=== PATIENT | female | born 1975 | race Two or more races ===

== ENCOUNTER 2016-07-08 12:58 | Emergency (ER) | payer OTHER ==
--- NOTE | ~2016-07-08 | CR72 ---
[facility] A Service of [facility] RADIOLOGY TEXT RESULTS PATIENT: CHINMAY LIU LOCATION: [facility] : [birth year] UNIT #: [id number] AGE: [address]: Favian Su MD SEX: F ORDER DR: [id number] [facility] [address] [place], [place] [address] [id number] MR#: [id number] Acc #: [id number] NAME: CHINMAY GARCIA : 1975 SEX: F STUDY DATE/TIME: 07/08/2016 12:03 UNIT: [facility] ROOM: STUDY DESCRIPTION: CR Chest Single View Portable Attending Physician: Favian Su M.D. Referring Physician: Bibi Murdock M.D. Ordering Physician: Favian Su M.D. Primary Care Physician: Bibi Murdock M.D. MEDICAL IMAGING REPORT This report is preliminary unless electronic signature is present EXAM Portable chest. DATE OF EXAM 07/08/2016 at 12:03. INDICATION Cough and congestion for 2 days. COMPARISON 01/11/2016 FINDINGS A single AP view of the chest shows both lungs to be clear. The heart is normal in size. The mediastinal contour is normal. No significant bone abnormalities are seen. IMPRESSION Normal AP portable chest. Dictated by... Gilbert Mcintyre Jr., M.D. THIS IS AN ELECTRONICALLY VERIFIED REPORT Gilbert Mcintyre Jr., M.D. at 07/11/2016 7:59 AM LA/edna TD: 07/08/2016 15:14 JOB #: [id number] MEDICAL IMAGING REPORT Page 1 of 1 COPY
--- NOTE | ~2016-07-08 | EKG ---
PATIENT: CHINMAY GARCIA UNIT #: [id number] Ventricular Rate: 88 BPM Atrial Rate: 88 BPM P-R Interval: 136 ms QRS Duration: 76 ms Q-T Interval: 372 ms QTC Calculation(Bezet): 450 ms P Edmond: 65 degrees Calculated R Edmond: 36 degrees Calculated T Edmond: 19 degrees Diagnosis Line: Sinus rhythm with Premature atrial complexes Diagnosis Line: Otherwise normal ECG Diagnosis Line: Diagnosis Line: Confirmed by ABDIAS HURLEY MD ([id number]) on 07/08/2016 Diagnosis Line: 6:39:51 PM INTERPRETING MD: XAVI IGLESIAS
[2016-07-08 12:14] LABS: POC - CKMB 1.1 ng/mL (0.0-7.9); POC - TROPONIN <0.05 ng/mL (<=0.05)
[2016-07-08 12:15] LABS: BASOPHIL% 0.4 % (0-2.5); DIFF IND NO; EOSINOPHIL# 0.1 X10e3 (0-0.7); EOSINOPHIL% 0.8 % (0.0-7.0); HEMATOCRIT 39.4 % (35.0-45.0); HEMOGLOBIN 12.9 gm/dL (12.0-16.0); LYMPHOCYTE# 1.9 X10e3 (1.0-3.5); LYMPHOCYTE% 25.1 % (17.0-45.0); MEAN CELL VOLUME 92.4 FL (83-96); MEAN CORPUSCULAR HEMOGLOBIN 30.2 PG (28-34); MEAN CORPUSCULAR HGB CONC 32.7 g/dL (30-36); MEAN PLATELET VOLUME 7.8 FL (6.5-11.5); MONOCYTE# 0.5 X10e3 (0-1.0); MONOCYTE% 7.1 % (3.0-12.0); NEUTROPHIL% 66.6 % (40-75); PLATELET COUNT 294 X10e3 (140-420); RED BLOOD COUNT 4.26 X10e (3.90-5.30); RED CELL DISTRIBUTION WIDTH 12.7 % (11.0-15.5); WHITE BLOOD COUNT 7.4 X10e3 (4.0-10.5)
[2016-07-08 12:45] LABS: ALBUMIN SERUM 4.1 g/dL (3.5-5.0); ALKALINE PHOSPHATASE 44 U/L (32-92); ALT (SGPT) 13 U/L (10-40); AST (SGOT) 14 U/L (10-42); BILIRUBIN, DIRECT 0.1 mg/dL (0.0-0.2); BILIRUBIN,INDIRECT 0.6 mg/dL (0.0-0.9); BILIRUBIN,TOTAL 0.7 mg/dL (0.2-2.0); BLOOD UREA NITROGEN 7 mg/dL (9-23); BUN/CREATININE RATIO 8.75; CALCIUM SERUM 9.2 mg/dL (8.4-10.2); CARBON DIOXIDE 21 mmol/L (22-31); CHLORIDE 108 mmol/L (100-111); CREATININE SERUM 0.8 mg/dL (0.6-1.4); GLOM FILT RATE Estimated 92.3 mL/min (>60); GLUCOSE FASTING 81 mg/dL (70-110); POTASSIUM 3.2 mmol/L (3.5-5.1); PROTEIN TOTAL SERUM 7.3 g/dL (6.0-8.3); SODIUM 138 mmol/L (135-145)
[2016-07-08 12:50] LABS: ALCOHOL BLOOD <5 mg/dL ([, 0])
[~2016-07-08 12:58] MED LIST: ALBUTEROL17 GM INH; AMOXICILLIN PO; AMOXICILLIN500 M1 PO; AURALGAN EAR DR14 ML OT; CIPRO PO; CLEOCIN150 MG PO; FLOXIN10 ML OT; KEFLEX PO; PHENERGAN W/CO120 ML PO; PROVERA PO; VICODIN 5/500 T1 TAB PO; ZITHROMAX PO
[2016-07-08 13:04] LABS: URINE SOURCE CLEAN CATCH
[2016-07-08 13:16] LABS: CULTURE INDICATED? NO; URINE APPEARANCE CLEAR; URINE BILIRUBIN NEG (NEG); URINE BLOOD TRACE (NEG); URINE COLOR YELLOW; URINE GLUCOSE NEG (NEG); URINE KETONE 3+ (NEG); URINE LEUKOCYTE ESTERASE TRACE (NEG); URINE NITRATE NEG (NEG); URINE PROTEIN NEG (NEG); URINE SPECIFIC GRAVITY 1.012 (1.003-1.035); URINE UROBILINOGEN 0.2 MG/DL (NEG)
[2016-07-08 13:29] LABS: AMPHETAMINE NEG (NEG); BARBITURATES NEG (NEG); BENZODIAZEPINES POS (NEG); COCAINE NEG (NEG); MARIJUANA NEG (NEG); OPIATES NEG (NEG); TRICYCLIC ANTIDEPRESSANTS NEG (NEG); U METHADONE NEG (NEG)
[2016-07-08 14:46] LABS: POC - CKMB <1.0 ng/mL (0.0-7.9); POC - TROPONIN <0.05 ng/mL (<=0.05)
== END 2016-07-08 17:49 | disposition home or self-care (01) ==
LOC: CED 12:58
PROVIDERS: Emergency Medicine
DX: R55 Syncope and collapse (principal); F32.9 Major depressive disorder, single episode, unspecified; F17.200 Nicotine dependence, unspecified, uncomplicated
CPT/HCPCS: 36415; 71010; 80048; 80076; 80307; 81003; 82553; 84484; 84703; 85025; 93005; 96361; 96374; 99285; G0480; J2405

== ENCOUNTER 2016-07-10 22:00 | Inpatient (IN) | payer OTHER ==
--- NOTE | ~2016-07-10 | PN ---
Unit #: [id number] #: [id number] Patient: CHINMAY LIU [id number] [facility] [address] [place] [address] [id number] MR#: [id number] NAME: CHINMAY LIU ROOM: P211 Age: 41 Sex: F Admission Date: 07/10/2016 : 1975 Attending Physician: Eder Cabrera M.D. Admitting Physician: Eder Cabrera M.D. Primary Care Physician: Seven Tovar PROGRESS NOTES DATE OF SERVICE 07/12/2016 DISCUSSION Ms. Bañuelos is a 41-year-old female seen on 07/12/2016. The patient interviewed, chart reviewed. Obtained information from nursing staff. The patient's mood continues to be labile, guarded, paranoid, compliant with medication. Currently on Desyrel, Zyprexa, Cogentin, and haloperidol. No side effects from medication. The patient was somewhat sleepy, isolative, guarded. The patient needed seclusion and holding twice today due to aggression. The patient continues to be guarded, disorganized behavior, paranoid. Pacing in hallway. Picking up on things. Increasingly agitated. Refused medication initially. The patient was given IM Haldol 1 mg. Before that Haldol, Cogentin IM. Complete Review of Systems: Unremarkable. MENTAL STATUS EXAMINATION General Appearance: The patient dressed in hospital attire. Attention span, concentration: Poor. Orientation in self. Mood and affect labile. Speech: Rapid. Thought process: Circumstantial, guarded, paranoid. Disorganized behavior. Disorganized thought process. Recent and remote memory poor. Insight and judgment poor. DIAGNOSES 1. Psychosis not otherwise specified. 2. Rule out schizophrenia, chronic, paranoid type. ASSESSMENT/PLAN Advised to continue with current medication and therapeutic protocol. If needed, consider further adjustment of medication. Dictated by... Eder Cabrera M.D. MAHI/emilie TD: 07/13/2016 10:34 JOB #: [id number] Unit #: [id number] #: [id number] Patient: CHINMAY LIU PROGRESS NOTES Page 1 of 1 X Eder Cabrera MD X PROGRESS NOTE
--- NOTE | ~2016-07-10 | TN ---
Unit #: [id number] #: [id number] Patient: CHINMAY EPPS [id number] [place] [address] [id number] I MR#: [id number] NAME: CHINMAY EPPS ROOM: P211 Age: 41 Sex: F Admission Date: 07/10/2016 : 1975 Discharge Date: 07/21/2016 Attending Physician: Eder Cabrera M.D. Primary Care Physician: Bibi Murdock M.D. LOC TRANSFER NOTE DATE OF SERVICE: 07/25/2016 The patient transferred from inpatient to partial program on 07/25/2016. ORIGINAL REASON FOR ADMISSION TO THE HOSPITAL Depression, psychosis. DISCHARGE MEDICATIONS Zyprexa 20 mg daily for mood stabilization and psychosis, Prozac 20 mg daily for depression, Inderal 20 mg b.i.d. for hand tremors, Ativan 0.5 mg at bedtime for anxiety, Wellbutrin 150 mg in the morning for mood symptom. RESPONSE TO TREATMENT Fair. REASON FOR TRANSFER TO ANOTHER LEVEL OF CARE The patient transferred from inpatient to partial program, so that the patient's behavior can be monitored in home environment. CURRENT SYMPTOMATOLOGY AND CLINICAL JUSTIFICATION FOR TRANSFER Please see above. MENTAL STATUS EXAMINATION General appearance, the patient dressed casually. Attention span and concentration, fair. Oriented in place and person. Mood and affect, labile. Speech, monotone. Thought process, concrete. The patient denied any thoughts of harming self or others. Recent and remote memory, poor. Insight and judgment, poor. DIAGNOSES Psychiatric: Bipolar mood disorder, recurrent, depressed with psychotic feature F31.9. Secondary diagnosis: Deferred. Medical diagnosis: None. Stressors: Psychosocial stressor. RECOMMENDATION AND EXPECTATION Advised to continue with outpatient program. Continue with current medication. The patient to attend all the programing in adult partial program. If needed, consider further adjustment of medication. Unit #: [id number] #: [id number] Patient: CHINMAY EPPS TREATMENT GOAL To attain euthymic mood, gain insight into her problem, and learn coping skills. DISCHARGE PLAN Plan to stabilize the patient and consider followup in outpatient program. ESTIMATED LENGTH OF STAY 2 weeks. Dictated by... Eder Cabrera M.D. [facility]/deisi TD: 08/26/2016 23:15 JOB #: [id number] LOC TRANSFER NOTE Page 1 of 1 X Eder Cabrera MD X LOC TRANSFER NOTE
--- NOTE | ~2016-07-10 | PN ---
Unit #: [id number] #: [id number] Patient: CHINMAY LIU [id number] [facility] [address] [place] [address] [id number] MR#: [id number] NAME: CHINMAY LIU ROOM: P211 Age: 41 Sex: F Admission Date: 07/10/2016 : 1975 Attending Physician: Eder Cabrera M.D. Admitting Physician: Eder Cabrera M.D. Primary Care Physician: Seven Tovar PROGRESS NOTES DATE OF SERVICE: 07/18/2016 DISCUSSION Ms. Bañuelos is a 41-year-old female, seen on 07/18/2016. The patient interviewed, chart reviewed, and obtained information from nursing staff. The patient continues to be guarded, withdrawn, isolative, and flat affect. According to the family, the patient is calling daughter, but she does not make much sense. The patient is compliant with medication. Daughter feels that she would not be safe to return home at this point. The patient was able to answer questions, but still disorganized thought process. Compliant with medication. REVIEW OF SYSTEMS Complete review of systems unremarkable. MENTAL STATUS EXAMINATION General appearance, the patient dressed casually. Attention span and concentration, fair. Oriented in place and person. Mood and affect, labile. Thought process; circumstantial, guarded, paranoid, disorganized thought process, attending to internal stimuli. Recent and remote memory, poor. Insight and judgment, poor. DIAGNOSES Psychosis, not otherwise specified; rule out bipolar mood disorder; and schizophrenia, chronic paranoid type. ASSESSMENT AND PLAN Advised to continue with current medication and therapeutic protocol. If needed, consider further adjustment of medication. Dictated by... Seven Christie/bharathl TD: 07/18/2016 19:03 JOB #: [id number] Unit #: [id number] #: [id number] Patient: CHINMAY LIU PROGRESS NOTES Page 1 of 1 X Eder Cabrera MD X PROGRESS NOTE
--- NOTE | ~2016-07-10 | PA ---
Unit #: [id number] #: [id number] Patient: EDDA LIU [id number] [facility] [address] [place] [address] [id number] MR#: [id number] NAME: EDDA LIU ROOM: P211 Age: 41 Sex: F Admission Date: 07/10/2016 : 1975 Date of Assessment: 07/11/2016 Attending Physician: Eder Cabrera M.D. Admitting Physician: Eder Cabrera M.D. Primary Care Physician: Bibi Murdock M.D. PSYCHIATRIC ASSESSMENT INFORMANTS The patient reliability, fair informant and chart reliability, good. CHIEF COMPLAINT Depression and not sleeping. HISTORY OF PRESENT ILLNESS Ms. Edda Perez is a 41-year-old female, presented with the above-mentioned complaint. The patient was interviewed with the help of an senior systems engineer. The patient was able to speak some Azeri. The patient reports she lives with her children and . History of inpatient treatment for psychosis and depression in [place] in 2017 twice. The patient presented with increase in depression, delusion, and not sleeping. The patient recently went to [place] for 3 weeks and returned on Sunday. While in [place], the patient was hospitalized for 5 days with mental health symptom. The patient was taking her 6-year-old son into deep portion of water in the dark. The patient denied any suicidal or homicidal ideation. The patient has bizarre thought process. Decreased sleep, has not slept in the last 1 week. The patient has been pacing and not functioning, poor concentration, and racing thoughts. The patient unable to complete tasks, unable to cook and clean, disorganized behavior and thought process. The patient is telling her family that she is queen Annalee and that the medication that they are trying to give her is poison. The patient is not eating and lost 12 pounds in the last 2 weeks. Denied any auditory or visual hallucination, but guarded and paranoid. The patient stated that she smoked some cigars and drank some beer while in [place]. The patient needing inpatient admission at this time for psychiatric stabilization. PAST PSYCHIATRIC HISTORY Remarkable for history of previous treatment in [place] as mentioned above. FAMILY HISTORY AND SOCIAL HISTORY The patient has a good support system. No history of any abuse. MEDICAL HISTORY Remarkable for UTI and asthma. MEDICATION HISTORY None. ALLERGIES No known drug allergies. Unit #: [id number] #: [id number] Patient: EDDA LIU SUBSTANCE ABUSE HISTORY None. REVIEW OF SYSTEMS HEENT: Eyes, clear. Ears, nose, mouth, and throat; clear. CARDIOVASCULAR: Unremarkable. RESPIRATORY: Unremarkable. GI: Unremarkable. : Unremarkable. SKIN: Unremarkable. LYMPH NODE: Unremarkable. NEUROLOGIC: Unremarkable. ENDOCRINE: Unremarkable. HEMATOLOGIC: Unremarkable. ALLERGIC/IMMUNOLOGIC: Unremarkable. MUSCULOSKELETAL: Muscle strength and tone, no atrophy or abnormal movement. Gait normal. MENTAL STATUS EXAMINATION CONSTITUTIONAL: Measurement of vital signs; temperature 98.3, heart rate 55, respiratory rate 17, oxygen saturation 100%, and blood pressure 127/82. Height 5 feet and weight 178 pounds. GENERAL APPEARANCE: The patient dressed casually. The patient did not show any facial deformity. MUSCULOSKELETAL: Please see above. PSYCHIATRIC EXAMINATION Description of speech; regular rate, normal volume, normal articulation, coherent, and spontaneous. Description of thought process, goal directed. Description of association, intact. Description of abnormal psychotic thinking; guarded, paranoid, delusional, mood lability, and paranoia. Description of the patient's judgment; concerning everyday activity, poor. Social situation, poor. Concerning psychiatric condition, poor. Complete mental status examination; oriented in time, place, and person. Recent and remote memory, poor. Attention span and concentration, poor. Fund of knowledge, poor. Vocabulary, fair. Insight and judgment, poor. The patient was interviewed with the help of senior systems engineer. ASSETS AND LIABILITIES Assets, the patient is articulate and able to take care of her ADL. Liability, history of depression and psychosis. ADMITTING DIAGNOSES Psychiatric: Major depressive disorder, recurrent, severe, F33.3, with psychotic features. Secondary diagnosis: Deferred. Medical diagnoses: Asthma and urinary tract infection. Stressors: Psychosocial stressors. PSYCHIATRIC PLAN AND TREATMENT GOAL AND DISCHARGE PLAN 1. Advised to admit the patient on the inpatient unit. Provide safe, supportive, and structured environment. 2. Ordered labs; CBC, CMP, UA, and UDS. 3. Precaution for psychosis and self-harm. Unit #: [id number] #: [id number] Patient: EDDA LIU 4. The patient to attend all the programing on the inpatient unit, group therapy, individual therapy, and medication management. Obtain collateral information from family. Advised to start the patient on Desyrel 50 mg at bedtime for sleep and Zyprexa 10 mg at bedtime for psychosis. Plan to add haloperidol. TREATMENT GOAL To attain euthymic mood, gain insight into her problem, and learn coping skills. DISCHARGE PLAN Plan to stabilize the patient and consider followup in outpatient program. ESTIMATED LENGTH OF STAY 30 days. Dictated by... Seven Christie/deisi TD: 07/11/2016 16:43 JOB #: [id number] PSYCHIATRIC ASSESSMENT Page 1 of 1 X Eder Cabrera MD X PSYCHIATRIC ASSESSMENT
--- NOTE | ~2016-07-10 | HP ---
Unit #: [id number] #: [id number] Patient: EDDA LIU [id number] [facility] [address] [place] [address] [id number] MR#: [id number] NAME: EDDA LIU ROOM: P211 Age: 41 Sex: F Admission Date: 07/10/2016 : 1975 Attending Physician: Eder Cabrera M.D. Admitting Physician: Eder Cabrera M.D. Primary Care Physician: Bibi Murdock M.D. HISTORY AND PHYSICAL HISTORY OF PRESENT ILLNESS Edda is a 41 year old [place] immigrant admitted to [address] [place] [address] with depression and verbalizing wanting to hurt herself. She speaks very good Syriac. She is employed at [employer]. PAST MEDICAL HISTORY Asthma. PAST SURGICAL HISTORY . ALLERGIES No known drug allergies. SOCIAL HISTORY Smokes on occasion. Drinks alcohol occasionally and denies illicit drug use. FAMILY HISTORY Medically noncontributory. REVIEW OF SYSTEMS CONSTITUTIONAL: No fever or chills. HEENT: Denies any sore throat, ear pain or runny nose. CARDIOVASCULAR: Denies chest pain, irregular heart rhythm or palpitations. CHEST: Denies shortness of breath or cough. No hemoptysis. GASTROINTESTINAL: Denies nausea, vomiting, diarrhea or chronic constipation. ENDOCRINE: Denies history of increased thirst or urination. No recent significant weight loss or gain. GENITOURINARY: Denies dysuria, frequency, or hematuria. SKIN: Denies any rashes. HEMATOLOGIC: Denies history of increased bleeding or bruising. MUSCULOSKELETAL: Denies any hot, swollen joints. No generalized muscle pain. NEUROLOGIC: Denies problems with vision or speech. No frequent, severe headaches. No numbness, tingling or weakness in any extremities. Denies loss of bladder or bowel control. CURRENT MEDICATIONS 1. Desyrel 50 mg q.h.s. 2. Zyprexa 10 mg q.h.s. 3. Cogentin 1 mg b.i.d. Unit #: [id number] #: [id number] Patient: EDDA LIU 4. Haldol 5 mg b.i.d. 5. Proventil inhaler p.r.n. 6. Milk of Magnesia p.r.n. 7. Maalox p.r.n. 8. Tylenol p.r.n. 9. Cipro 500 mg b.i.d. PHYSICAL EXAMINATION GENERAL: Alert, well-nourished, in no apparent distress. VITAL SIGNS: Blood pressure 126/82, heart rate 80, respirations 16, temperature 98.6. WEIGHT: 178. HEIGHT: 5 feet 0 inches. SKIN: Warm and dry without rash or lesion. HEENT: Normocephalic. TMs not viewed. Oral and nasal passages clear. Conjunctivae clear. PERRLA. EOMs intact. NECK: Supple without lymphadenopathy or thyromegaly. HEART: Regular rate and rhythm without murmur. LUNGS: Clear. ABDOMEN: Soft, nontender. : Not done. EXTREMITIES: No evidence of cyanosis, clubbing or edema. Moves all without focal deficit. NEUROLOGICAL: Grossly within normal limits. Cranial Nerves: II: Visual melendez are intact. III, IV AND : Extraocular movements are intact. Pupils are equal, round and reactive to light. V: Facial sensation is grossly normal. VII: Facial movements and expression are normal. VIII: Auditory acuity grossly intact. IX, X: Uvula is midline. Phonation is normal. XI: Patient shrugs shoulders and turns head normally. XII: Tongue protrudes in the midline. Sensory and Motor Function: Sensory and motor sensation is grossly normal. Motor: moves all extremities well. Coordination: Gait is normal. Deep Tendon Reflexes: Intact. IMPRESSION 1. Psychiatric admission. 2. Patient is being treated for UTI. Antibiotic was started prior to this admission. RECOMMENDATIONS PSYCHIATRIC: Per psychiatrist. MEDICAL: 1. See no contraindications to participate in facility's activities. 2. Complete Cipro. MEDICAL PROGNOSIS Good. MEDICAL CONDITION Stable. Dictated by... Sophia Wheat P.A.-C. for Sarbjit Huggins M.D. Unit #: [id number] #: [id number] Patient: EDDA LIU JEANNIE/remedios TD: 07/11/2016 16:29 JOB #: [id number] HISTORY AND PHYSICAL Page 1 of 1 X Sophia Wheat X HISTORY AND PHYSICAL
--- NOTE | ~2016-07-10 | PN ---
Unit #: [id number] #: [id number] Patient: CHINMAY LIU [id number] [facility] [address] [place] [address] [id number] MR#: [id number] NAME: CHINMAY LIU ROOM: P211 Age: 41 Sex: F Admission Date: 07/10/2016 : 1975 Attending Physician: Eder Cabrera M.D. Admitting Physician: Eder Cabrera M.D. Primary Care Physician: Seven Tovar PROGRESS NOTES DATE OF SERVICE: 07/13/2016 DISCUSSION Ms. Bañuelos is a 41-year-old female. The patient interviewed, chart reviewed, and obtained information from nursing staff. The patient sleeping good, tolerating medication fairly well, still somewhat guarded and paranoid, still having some bizarre behavior. Vital signs stable; temperature 98.1, heart rate 104, and blood pressure 124/79. The patient continues to be isolative, flat affect, sad and dysphoric mood. The patient's mood was irritable. Slow to follow direction. REVIEW OF SYSTEMS Complete review of systems unremarkable. MENTAL STATUS EXAMINATION General appearance, the patient dressed casually in hospital attire. Attention span and concentration, poor. Oriented in place and person. Mood and affect, sad, dysphoric, and flat. Speech is monotone. Thought process, concrete. The patient denied any thoughts of harming self or others, but still guarded, paranoid, and delusional. Recent and remote memory, poor. Insight and judgment, poor. DIAGNOSES Psychosis, not otherwise specified and bipolar mood disorder, not otherwise specified. ASSESSMENT AND PLAN Advised to continue with current medication and therapeutic protocol. If needed, consider further adjustment of medication. Monitor for side effects. Dictated by... Seven Christie/deisi TD: 07/13/2016 16:50 JOB #: [id number] Unit #: [id number] #: [id number] Patient: CHINMAY LIU PROGRESS NOTES Page 1 of 1 X Eder Cabrera MD PROGRESS NOTE
--- NOTE | ~2016-07-10 | PN ---
Unit #: [id number] #: [id number] Patient: CHINMAY LIU [id number] [facility] [address] [place] [address] [id number] MR#: [id number] NAME: CHINMAY LIU ROOM: P211 Age: 41 Sex: F Admission Date: 07/10/2016 : 1975 Attending Physician: Eder Cabrera M.D. Admitting Physician: Eder Cabrera M.D. Primary Care Physician: Seven Tovar NOTES DATE OF SERVICE 07/14/2016 DISCUSSION Ms. Bañuelos is a 41-year-old female seen on 07/14/2016. The patient was cooperative, redirectable. Tolerating medication fairly well. No side effects from medication. The patient making progress, but still having some concerns about taking her medication. Reports sleeping good. Able to answer questions appropriately. The patient's vital signs: 98.4, 102, 131/91. The patient will come to the nurses station, grabbing supplies out of the cabinet, then return into her room. Complete Review of Systems: Unremarkable. MENTAL STATUS EXAMINATION General Appearance: The patient dressed casually. Attention span, concentration: Poor. Oriented in place and person. Mood and affect labile. Speech: Slow. Thought process: Circumstantial. Association: Guarded, but denied any thoughts of harming self or others. Recent and remote memory: Poor. Insight and judgment: Poor. DIAGNOSES 1. Psychosis not otherwise specified. 2. Mood disorder not otherwise specified. ASSESSMENT/PLAN Advised to continue with current medication. If needed, consider further adjustment of medication. Dictated by... Seven Christie/emilie TD: 07/15/2016 09:00 JOB #: [id number] Unit #: [id number] #: [id number] Patient: CHINMAY LIU PROGRESS NOTES Page 1 of 1 X Eder Cabrera MD PROGRESS NOTE
--- NOTE | ~2016-07-10 | PN ---
Unit #: [id number] #: [id number] Patient: CHINMAY LIU [id number] [facility] [address] [place] [address] [id number] MR#: [id number] NAME: CHINMAY LIU ROOM: P211 Age: 41 Sex: F Admission Date: 07/10/2016 : 1975 Attending Physician: Eder Cabrera M.D. Admitting Physician: Eder Cabrera M.D. Primary Care Physician: Seven Tovar PROGRESS NOTES DATE 07/19/2016 DISCUSSION Ms. Bañuelos is a 41-year-old female seen on 07/19/2016. The patient interviewed, chart reviewed. Obtained information from nursing staff. The patient continues to be withdrawn, isolative, guarded, flat affect still having some difficulty with sleep. Vital signs stable 97.7, 128, 16, 137/98. Still guarded, paranoid needing redirection. No aggressive behavior. Tolerating medication fairly well. The patient continues to be isolative, flat affect. Mood sad, depressed, flat. Complete review of systems unremarkable. MENTAL STATUS EXAMINATION General appearance, the patient dressed casually. Attention span and concentration fair. Oriented to time, place and person. Mood and affect sad, dysphoric. Speech monotone. Thought process concrete. The patient denied any thoughts of harming self or others. Recent and remote memory poor. Insight and judgement poor. DIAGNOSES Psychosis NOS Rule out bipolar mood disorder ASSESSMENT/PLAN Advise to add Prozac 20 mg daily for mood symptoms. Continue with the current treatment. If needed consider further adjustment of medication. Dictated by... Seven Christie/kieran TD: 07/20/2016 01:37 JOB #: [id number] Unit #: [id number] #: [id number] Patient: CHINMAY LIU PROGRESS NOTES Page 1 of 1 X Eder Cabrera MD X PROGRESS NOTE
--- NOTE | ~2016-07-10 | PN ---
Unit #: [id number] #: [id number] Patient: CHINMAY LIU [id number] [facility] [address] [place] [address] [id number] MR#: [id number] NAME: CHINMAY LIU ROOM: P211 Age: 41 Sex: F Admission Date: 07/10/2016 : 1975 Attending Physician: Eder Cabrera M.D. Admitting Physician: Eder Cabrera M.D. Primary Care Physician: Seven Tovar PROGRESS NOTES DATE OF SERVICE 07/16/2016 DISCUSSION Ms. Bañuelos is a 41-year-old female seen on 07/16/2016. The patient interviewed, chart reviewed. Obtained information from nursing staff. The patient was not sleeping, increasingly paranoid, guarded, agitated, bizarre behavior, disorganized behavior, thought process. Complete Review of Systems: Unremarkable. MENTAL STATUS EXAMINATION General Appearance: The patient dressed casually. Attention span, concentration: Poor. Orientation in self. Mood and affect labile. Speech: Slow. Thought process: Circumstantial. Association: Guarded, paranoid. Attending do internal stimuli. Bizarre behavior, bizarre thought process. Recent and remote memory: Poor. Insight and judgment: Poor. DIAGNOSES 1. Psychosis not otherwise specified. 2. Mood disorder not otherwise specified. 3. Rule out schizoaffective disorder versus schizophrenia, chronic, paranoid type. ASSESSMENT/PLAN Advised to increase Haldol to 10 mg twice daily. Continue with Desyrel, but increased the dosage to 100 mg to help with sleep. Continue with Zyprexa. If needed, consider further adjustment of medication. We will closely monitor. Dictated by... Seven Christie/emilie TD: 07/17/2016 09:50 JOB #: [id number] Unit #: [id number] #: [id number] Patient: CHINMAY LIU PROGRESS NOTES Page 1 of 1 X Eder Cabrera MD X PROGRESS NOTE
--- NOTE | ~2016-07-10 | PN ---
Unit #: [id number] #: [id number] Patient: EDDA LIU [id number] [facility] [address] [place] [address] [id number] I MR#: [id number] NAME: EDDA LIU ROOM: P211 Age: 41 Sex: F Admission Date: 07/10/2016 : 1975 Attending Physician: Eder Cabrera M.D. Admitting Physician: Eder Cabrera M.D. Primary Care Physician: Seven Tovar PROGRESS NOTES DATE OF SERVICE: 07/17/2016 DISCUSSION Edda is a 41-year-old female. The patient continues to be guarded paranoid, flat affect. The patient compliant with medication, but still having trouble sleeping, paranoia, mood lability, answered question in short sentences. Vital signs stable; temperature 97.3, pulse 103, and blood pressure 129/91. The patient is tolerating medication fairly well, but still very guarded paranoid. REVIEW OF SYSTEMS Complete review of systems unremarkable. MENTAL STATUS EXAMINATION General appearance, the patient dressed in hospital attire. Attention span and concentration, poor. Oriented in place and person. Mood and affect; sad, dysphoric, flat. Speech, monotone. Thought process, concrete. The patient denied any thoughts of harming self or others, but guarded paranoid, delusional, attending to internal stimuli. Recent and remote memory, poor. Insight and judgment, poor. DIAGNOSES Psychosis, not otherwise specified; schizophrenia, chronic, paranoid type. ASSESSMENT AND PLAN Advised to continue with current medication and therapeutic protocol. If needed, consider further adjustment of medication. Dictated by... Seven Christie/deisi TD: 07/17/2016 16:43 JOB #: [id number] Unit #: [id number] #: [id number] Patient: EDDA LIU PROGRESS NOTES Page 1 of 1 X Eder Cabrera MD PROGRESS NOTE
--- NOTE | ~2016-07-10 | PN ---
Unit #: [id number] #: [id number] Patient: CHINMAY LIU [id number] [facility] [address] [place] [address] [id number] I MR#: [id number] NAME: CHINMAY LIU ROOM: P211 Age: 41 Sex: F Admission Date: 07/10/2016 : 1975 Attending Physician: Eder Cabrera M.D. Admitting Physician: Eder Cabrera M.D. Primary Care Physician: Seven Tovar PROGRESS NOTES DATE OF SERVICE 07/11/2016 DISCUSSION Ms. Bañuelos is a 41-year-old female seen on 07/11/2016. Patient interviewed, chart reviewed, I obtained information from nursing staff. Patient continues to be guarded, paranoid, isolative, pacing in hallway, not sleeping, anxious, nervous. COMPLETE REVIEW OF SYSTEMS Unremarkable. MENTAL STATUS EXAMINATION GENERAL APPEARANCE: Patient dressed casually. ATTENTION SPAN AND CONCENTRATION: Fair. Oriented in self. MOOD AND AFFECT: Labile. SPEECH: Slow. THOUGHT PROCESS: Circumstantial, guarded, paranoid, delusional. RECENT AND REMOTE MEMORY: Poor. INSIGHT AND JUDGMENT: Poor. DIAGNOSIS Psychosis, NOS Rule out schizophrenia, chronic paranoid type Major depressive disorder with psychotic features ASSESSMENT/PLAN Advised to add Haldol 5 mg twice daily, Cogentin 1 mg twice daily, continue with the current medications. If needed, consider further adjustment in medication. Dictated by... Seven Christie/roger TD: 07/11/2016 23:53 JOB #: [id number] Unit #: [id number] #: [id number] Patient: CHINMAY LIU PROGRESS NOTES Page 1 of 1 X Eder Cabrera MD PROGRESS NOTE
--- NOTE | ~2016-07-10 | PN ---
Unit #: [id number] #: [id number] Patient: CHINMAY LIU [id number] [facility] [address] [place] [address] [id number] I MR#: [id number] NAME: CHINMAY LIU ROOM: P211 Age: 41 Sex: F Admission Date: 07/10/2016 : 1975 Attending Physician: Eder Cabrera M.D. Admitting Physician: Eder Cabrera M.D. Primary Care Physician: Seven Tovar PROGRESS NOTES DATE 07/20/2016 DISCUSSION Ms. Bañuelos is a 41-year-old female seen on 07/20/2016. The patient interviewed, chart reviewed. The patient withdrawn, isolative, flat affect, sad, dysphoric mood started on Prozac yesterday tolerating medication fairly well. The patient is currently on Prozac, Desyrel, Zyprexa, Haldol, Cogentin. No side effects from medication. The patient continues to be isolative, flat affect, guarded, withdrawn but no aggressive behavior. The patient was able to sleep good still having psychotic symptoms. Complete review of systems unremarkable. MENTAL STATUS EXAMINATION General appearance, the patient dressed casually in hospital attire. Attention span and concentration poor. Oriented to self and place. Mood and affect labile. Speech slow. Thought process circumstantial. The patient denied any thoughts of harming self or others somewhat guarded. Recent and remote memory poor. Insight and judgement poor. DIAGNOSES Mood disorder NOS ASSESSMENT/PLAN Advise to continue with current medication and therapeutic protocol. If needed consider further adjustment of medication. Dictated by... Seven Christie/kieran TD: 07/21/2016 01:33 JOB #: [id number] Unit #: [id number] #: [id number] Patient: CHINMAY LIU PROGRESS NOTES Page 1 of 1 X Eder Cabrera MD PROGRESS NOTE
--- NOTE | ~2016-07-10 | PN ---
Unit #: [id number] #: [id number] Patient: CHINMAY LIU [id number] [facility] [address] [place] [address] [id number] I MR#: [id number] NAME: CHINMAY LIU ROOM: P211 Age: 41 Sex: F Admission Date: 07/10/2016 : 1975 Attending Physician: Eder Cabrera M.D. Admitting Physician: Eder Cabrera M.D. Primary Care Physician: Seven Tovar PROGRESS NOTES DATE OF SERVICE: 07/15/2016 DISCUSSION Ms. Bañuelos is a 41-year-old female, seen on 07/15/2016. The patient interviewed, chart reviewed, and obtained information from nursing staff. The patient continues to be guarded paranoid, flat affect, compliant with medication. The patient did not show any aggression. Mood is sad, dysphoric, flat affect, guarded. No aggression. Behavior was argumentative and impulsive yesterday. REVIEW OF SYSTEMS Complete review of systems unremarkable. MENTAL STATUS EXAMINATION General appearance, the patient dressed casually in hospital attire. Attention span and concentration, poor. Oriented in place and person. Mood and affect, sad, dysphoric, flat. Speech, monotone. Thought process, concrete. The patient denied any thoughts of harming self or others, but somewhat guarded. Recent and remote memory, poor. Insight and judgment, poor. DIAGNOSES 1. Psychosis, not otherwise specified. 2. Bipolar mood disorder, not otherwise specified. ASSESSMENT AND PLAN Advised to continue with current medication and therapeutic protocol. If needed, consider further adjustment of medication and discussed with the family about discharge. Dictated by... Seven Christie/deisi TD: 07/17/2016 03:33 JOB #: [id number] Unit #: [id number] #: [id number] Patient: CHINMAY LIU PROGRESS NOTES Page 1 of 1 X Eder Cabrera MD PROGRESS NOTE
--- NOTE | ~2016-07-10 | DS ---
Unit #: [id number] #: [id number] Patient: CHINMAY LIU [id number] [place] [address] [id number] MR#: [id number] NAME: CHINMAY LIU ROOM: P211 Age: 41 Sex: F Admission Date: 07/10/2016 : 1975 Discharge Date: 07/21/2016 Attending Physician: Eder Cabrera M.D. Primary Care Physician: Bibi Murdock M.D. DISCHARGE SUMMARY REASON FOR ADMISSION Psychosis, depression. DIAGNOSTIC STUDIES LABORATORY DATA: Unremarkable. HOSPITAL COURSE The patient was admitted to inpatient unit on July 10 and discharged on 07/21/2016. The patient was treated on the inpatient unit with group therapy, individual therapy, medication management. The patient was mostly seclusive, isolative during her stay, but showed improvement with above modalities of treatment and medication. Subsequently the patient was discharged as the patient was able to sleep. Showed improvement in her mood and behavior and psychotic symptom and depression. DISCHARGE MEDICATIONS 1. Cogentin 1 mg twice daily for EPS symptom. 2. Trazodone 100 mg at bedtime for sleep. 3. Haldol 10 mg at bedtime for psychosis. 4. Prozac 20 mg daily for depression. 5. The patient needed 2 antipsychotics Haldol and Zyprexa. As the patient did not respond with one, the patient was started on Haldol, Zyprexa, and Risperdal in the past. The patient plans to taper off Haldol over the next 6 months once the patient is stable. The patient is not a candidate for Clozaril at this time due to noncompliance. DISCHARGE DIAGNOSES PSYCHIATRIC: Major depressive disorder, recurrent, severe with psychotic features, F33.2. Rule out bipolar mood disorder. Rule out schizoaffective disorder. SECONDARY: Deferred. MEDICAL: Asthma. Urinary tract infection, treated. STRESSORS: Psychosocial stressor. FOLLOWUP CARE The patient to follow up in outpatient clinic as per social services designee. CONDITION ON DISCHARGE The patient pleasant, cooperative. Denied any psychotic symptom or any suicidal ideation. Unit #: [id number] #: [id number] Patient: CHINMAY LIU PROGNOSIS Guarded. DIET AND ACTIVITY As tolerated. Dictated by... EderSeven Frost TD: 07/22/2016 12:15 JOB #: [id number] DISCHARGE SUMMARY Page 1 of 1 X Eder Cabrera MD DISCHARGE SUMMARY
[2016-07-11 10:03] LABS: THYROID STIMULATING HORMONE 0.92 uIU/ml (0.34-5.60)
[2016-07-11 10:04] LABS: BASOPHIL% 0.4 % (0-2.5); DIFF IND NO; EOSINOPHIL# 0.1 X10e3 (0-0.7); EOSINOPHIL% 1.3 % (0.0-7.0); HEMATOCRIT 39.9 % (35.0-45.0); HEMOGLOBIN 13.4 gm/dL (12.0-16.0); LYMPHOCYTE# 1.9 X10e3 (1.0-3.5); LYMPHOCYTE% 24.9 % (17.0-45.0); MEAN CELL VOLUME 90.1 FL (83-96); MEAN CORPUSCULAR HEMOGLOBIN 30.1 PG (28-34); MEAN CORPUSCULAR HGB CONC 33.4 g/dL (30-36); MEAN PLATELET VOLUME 8.4 FL (6.5-11.5); MONOCYTE# 0.7 X10e3 (0-1.0); MONOCYTE% 9.2 % (3.0-12.0); NEUTROPHIL# 4.9 X10e3 (1.5-7.1); NEUTROPHIL% 64.2 % (40-75); PLATELET COUNT 279 X10e3 (140-420); RED BLOOD COUNT 4.43 X10e (3.90-5.30); RED CELL DISTRIBUTION WIDTH 12.5 % (11.0-15.5); WHITE BLOOD COUNT 7.6 X10e3 (4.0-10.5)
[2016-07-11 10:12] LABS: FREE THYROXIN (T4) 1.31 ng/dL (0.58-1.64)
[2016-07-11 12:41] LABS: URINE BILIRUBIN NEG (NEG); URINE BLOOD NEG (NEG); URINE COLOR YELLOW; URINE GLUCOSE NEG (NEG); URINE KETONE NEG (NEG); URINE LEUKOCYTE ESTERASE 2+ (NEG); URINE NITRATE NEG (NEG); URINE PROTEIN NEG (NEG); URINE SPECIFIC GRAVITY 1.015 (1.003-1.035); URINE UROBILINOGEN 0.2 MG/DL (NEG)
[2016-07-11 12:46] LABS: URINE BACTERIA AUWI 2+ (NEGATIVE); URINE SQUAMOUS EPITHELIAL CELL MOD /[HPF]
[2016-07-11 12:56] LABS: URINE APPEARANCE HAZY
[2016-07-11 18:29] LABS: AMPHETAMINE NEG (NEG); BARBITURATES NEG (NEG); BENZODIAZEPINES POS (NEG); COCAINE NEG (NEG); MARIJUANA NEG (NEG); OPIATES NEG (NEG); TRICYCLIC ANTIDEPRESSANTS NEG (NEG); U METHADONE NEG (NEG)
[2016-07-14 06:47] LABS: HA AB IGM (HEPPAN) Nonreactive (()); HB CORE AB IGM (HEPPAN) Nonreactive (Nonreactive); HB S AG (HEPPAN) Nonreactive (Nonreactive); HEP C AB (HEPPAN) Nonreactive (Nonreactive); HEP C AB SIGNAL TO CUTOFF 0.01 ratio (<1.00)
== END 2016-07-21 12:43 | disposition home or self-care (01) | DRG 885 ==
LOC: P2S 22:00
PROVIDERS: Psychiatry & Neurology Psychiatry
DX: F33.3 Major depressive disorder, recurrent, severe with psychotic symptoms (principal); F31.89 Other bipolar disorder; N39.0 Urinary tract infection, site not specified; J45.909 Unspecified asthma, uncomplicated
CPT/HCPCS: 80074; 80307; 81003; 84439; 84443; 84703; 85025; 86592; 87806; J0515; J1630; J2060